=== PATIENT | male | born 1995 | race Caucasian/White ===

== ENCOUNTER 2017-10-01 00:22 | Emergency (ER) | payer BC ==
[~2017-10-01] VITALS: Ht 180.3 cm; Wt 86.4 kg
[~2017-10-01 00:22] MED LIST: ADDERALL20 MG PO; ADVIL200 MG PO; CEPHALEXIN500 M1 PO; NORCO 325 MG-51 TAB PO; NORCO 325 MG-7.1 TAB PO; PHENERGAN 25 TA25 MG PO; ZOFRAN 4MG T4 MG/TAB PO
[2017-10-01 00:32] VITALS: BP 165/88; TEMP 97.7
[2017-10-01] MEDS ORDERED: ZESTRIL 5MG5 MG PO (00:35)
[2017-10-01] MEDS ORDERED: VYVANSE50 MG PO (00:35)
[2017-10-01] MEDS ORDERED: ZOFRAN ODT4 MG PO (01:36)
[2017-10-01 01:50] VITALS: PULSE 76
== END 2017-10-01 01:50 | disposition home or self-care (01) ==
LOC: COL.ER 00:22
DX: G43.909 Migraine, unspecified, not intractable, without status migrainosus (principal); I10 Essential (primary) hypertension; Z86.73 Personal history of transient ischemic attack (TIA), and cerebral infarction without residual deficits; Z98.890 Other specified postprocedural states
CPT/HCPCS: J1885; J2765

== ENCOUNTER 2018-10-06 12:36 | Day surgery (SDC) | payer BC ==
[2018-10-06] VITALS (10 sets, daily range): BP systolic 131–144; BP diastolic 58–92; PULSE 72–85; TEMP 97.6–98.4
[~2018-10-06] VITALS: Ht 180.3 cm; Wt 88.1 kg
[~2018-10-06 12:36] MED LIST changes: +VYVANSE50 MG PO; +ZESTRIL 5MG5 MG PO; +ZOFRAN ODT4 MG PO
[2018-10-06] MEDS ORDERED: PRILOSEC10 MG PO (13:02)
[2018-10-06 13:26] LABS: COLLECTION METHOD CLEAN CATCH
[2018-10-06 13:45] LABS: PH 7 (5-8); SQUAMOUS EPITHELIAL None Seen /hpf; URINE APPEARANCE Clear; URINE BACTERIA None Seen /hpf; URINE BILIRUBIN Negative (NEGATIVE); URINE BLOOD Negative (NEGATIVE); URINE COLOR Yellow; URINE GLUCOSE Negative (NEGATIVE); URINE KETONE Negative (NEGATIVE); URINE LEUKOCYTE ESTERASE Negative (NEGATIVE); URINE NITRATE Negative (NEGATIVE); URINE PROTEIN(semi-quant) Negative (NEGATIVE); URINE RBC 0-2 /hpf; URINE UROBILINOGEN Negative (NEGATIVE)
[2018-10-06 13:50] LABS: BASO # 0.1 (0.0-0.2); BASO % 0.6 % (0.0-2.0); EOS % 0.3 % (0-4.0); GRAN # 10.8 (1.4-6.5); GRAN % 77.8 % (42.2-75.2); HEMATOCRIT 42.2 % (42.0-52.0); HEMOGLOBIN 14.5 g/dl (13.5-18.0); LYMPH # 1.7 (1.2-3.4); MEAN CELL VOLUME 84 fl (80.0-100.0); MEAN CORPUSCULAR HEMOGLOBIN 29 pg (27.0-31.0); MEAN CORPUSCULAR HGB CONC 34 g/dl (33.0-37.0); MEAN PLATELET VOLUME 9.4 fl (7.4-10.4); MONO # 1.2 (0.1-0.6); MONO % 8.8 % (1.7-9.3); PLATELET COUNT 289 K/mm3 (130-400); REDCELL DISTRIBUTION WIDTH-CV 12.9 % (11.5-14.5)
[2018-10-06 14:04] LABS: ALBUMIN 4.9 gm/dL (3.5-5.0); BILIRUBIN,TOTAL 0.8 mg/dL (0.0-1.0); C-REACTIVE PROTEIN 0.6 mg/dL (0.0-0.9); CALCIUM 9.9 mg/dL (8.4-10.2); CREATININE, serum 0.9 (0.66-1.25); POTASSIUM 4.1 mmol/L (3.4-5.0); TOTAL PROTEIN 8.3 gm/dL (6.4-8.2)
--- NOTE | 2018-10-06 15:35 | NUR ---
PATIENT ARRIVED TO ROOM 323 VIA WHEELCHAIR FROM ED. PATIENT SETTELED INTO ROOM. BOYFRIEND PRESENT AT THE BEDSIDE.
--- NOTE | 2018-10-06 16:30 | NUR ---
SEE ASSESSMENT B. CONSENT FORM SIGNED AND ON PATIENT'S CHART. PRE-OP IV FLUIDS INFUSING TO LEFT AC IV VIA GRAVITY FLOW TUBING. PATIENT TAKEN TO PERIOP VIA BED. WILL WAIT FOR PATIENT ARRIVAL BACK TO ROOM 323.
--- NOTE | 2018-10-06 18:10 | NUR ---
PATIENT ARRIVED BACK TO ROOM 323 VIA BED FROM PACU. PATIENT SETTELED INTO ROOM. ABDOMINAL LAP SITES X3 DRESSED WITH BANDAIDS AND ARE CD&I. POST-OP VSS. FAMILY AND FRIENDS AT THE BEDSIDE. PATIENT TOLERATING CLEAR LIQUIDS. CALL LIGHT WITHIN REACH. NO OTHER NEEDS AT THIS TIME.
--- NOTE | 2018-10-06 19:02 | NUR ---
REPORT GIVEN TO LUCY CORDERO.
--- NOTE | 2018-10-07 00:51 | NUR ---
Patient tolerating food and fluids well. At beginning of the shift patient had nausea and pain. PRN Zofran and morphine given. This was effective. After patient was able to keep down some food, PRN [place] was given. This noted to be effective. Patient sleeping well at this time. Family walked with patient in the halls and he did well with ambulation. Will continue to monitor.
--- NOTE | 2018-10-07 02:43 | NUR ---
Patient continues to rate pain 6/10 to left leg. States its burning, but its further up by his calf. PRN pain medication given. Will continue to monitor patient.
[2018-10-07 05:05] VITALS: BP 119/54; PULSE 63; PULSE 68; TEMP 98.1; TEMP 98.3
[2018-10-07 07:18] VITALS: BP 124/54; PULSE 58; TEMP 98.3
--- NOTE | 2018-10-07 08:00 | NUR ---
PATIENT IS DROWSY AND RESTING IN BED WITH HIS MOTHER AT THE BEDSIDE. PATIENT IS A&OX4. VSS. BOWEL SOUNDS ACTIVE ALL FOUR QUADRANTS. PATIENT TOLERATING DIET WITHOUT ANY COMPLAINTS OF N/V. ABDOMINAL LAP SITES X3 DRESSED WITH BANDAIDS AND ARE CD&I. POSITIVE PEDAL PULSES EQUAL BILATERALLY. SCD'S TO BLE. CALL LIGHT WITHIN REACH. NO OTHER NEEDS AT THIS TIME.
[2018-10-07 09:08] VITALS: BP 116/63
--- NOTE | 2018-10-07 09:20 | NUR ---
BETTYE met with the patient to discuss a discharge plan. The pt lives in [place] with roommates. The pt does not use any DME and reports independence with ADLs. The pt's PCP is Dr. Goss and pt receives medications from [facility] with no difficulties. The pt does not have advanced directives in the EMR and was not interested in obtainin a DPOA-HC form. The pt plans to return home upon discharge and his mom will provide transport. There are no additional needs at this time.
--- NOTE | 2018-10-07 11:18 | NUR ---
REPORT GIVEN TO LUCY AU.
[2018-10-07 11:28] VITALS: BP 120/58; PULSE 65
--- NOTE | 2018-10-07 11:52 | NUR ---
REPORT FROM MAIKOL AYALA.
[2018-10-07] MEDS ORDERED: PERCOCET 325 MG1 TA2 PO (12:59)
--- NOTE | 2018-10-07 14:14 | NUR ---
Initial visit; Patient thanked [employer] for looking in on him and offering God's blessings and keeping him in [employer]'s prayers.
--- NOTE | 2018-10-07 14:25 | NUR ---
discharge instructions reviewed with patient and family. Questions answered, pt left ambulatory with mother.
== END 2018-10-07 14:26 | disposition home or self-care (01) ==
LOC: COL.ER 12:36 → SURG 14:47 → SDCO 14:47 → COL.ER 14:47 → SURG 10-07 14:26 → SDCO 10-07 14:26
PROVIDERS: Physician Assistant
DX: K35.80 Unspecified acute appendicitis (principal); I10 Essential (primary) hypertension; Z79.899 Other long term (current) drug therapy; K21.9 Gastro-esophageal reflux disease without esophagitis; F32.9 Major depressive disorder, single episode, unspecified; F90.9 Attention-deficit hyperactivity disorder, unspecified type; G43.909 Migraine, unspecified, not intractable, without status migrainosus
CPT/HCPCS: G0378; J0690; J1100; J1170; J1885; J2250; J2270; J2405; J2704; J3010; J7030; Q9967

== ENCOUNTER 2018-12-01 16:48 | Emergency (ER) | payer OTHER ==
[~2018-12-01] VITALS: Ht 180.3 cm; Wt 88.6 kg
[~2018-12-01 16:48] MED LIST changes: +PERCOCET 325 MG1 TA2 PO; +PRILOSEC10 MG PO
[2018-12-01 17:02] VITALS: BP 146/82; TEMP 98.1
[2018-12-01 18:19] VITALS: PULSE 74
[2018-12-01 18:28] LABS: HIV 1/2 Antibodies Non-Reactive; HIV-1p24 Antigen Non-Reactive
[2018-12-02 16:06] LABS: HEPATITIS B SURFACE ANTIGEN Negative (Negative); HEPATITIS C VIRUS ANTIBODY Negative (Negative)
== END 2018-12-01 18:19 | disposition home or self-care (01) ==
LOC: COL.ER 16:48
PROVIDERS: Nurse Practitioner
DX: Z02.83 Encounter for blood-alcohol and blood-drug test (principal); J45.909 Unspecified asthma, uncomplicated; F90.9 Attention-deficit hyperactivity disorder, unspecified type

== ENCOUNTER 2019-04-23 18:34 | Emergency (ER) | payer SELFPAY ==
[~2019-04-23] VITALS: Ht 180.3 cm; Wt 86.4 kg
[2019-04-23 18:38] VITALS: BP 155/89; PULSE 84; TEMP 96.8
[2019-04-23] MEDS ORDERED: MOBIC 7.5MG7.5 MG PO (19:16)
== END 2019-04-23 19:25 | disposition home or self-care (01) ==
LOC: COL.ER 18:34
DX: S63.501A Unspecified sprain of right wrist, initial encounter (principal); I10 Essential (primary) hypertension; X50.0XXA Overexertion from strenuous movement or load, initial encounter; Y92.59 Other trade areas as the place of occurrence of the external cause

== ENCOUNTER → 2019-07-02 | Outpatient (CLI) | payer OTHER ==
[~2019-07-02] MED LIST changes: +MOBIC 7.5MG7.5 MG PO
== END ==
LOC: COL.RAD 14:13
DX: S63.501A Unspecified sprain of right wrist, initial encounter (principal)

== ENCOUNTER 2019-07-22 08:28 | Outpatient (RCR) | payer OTHER | END 2019-07-23 14:52 | disposition home or self-care (01) | LOC: WSOH 08:28 | DX: S63.501A Unspecified sprain of right wrist, initial encounter (principal); Z90.89 Acquired absence of other organs; Z98.890 Other specified postprocedural states; I10 Essential (primary) hypertension; K21.9 Gastro-esophageal reflux disease without esophagitis; F90.9 Attention-deficit hyperactivity disorder, unspecified type ==

== ENCOUNTER → 2019-09-05 | Outpatient (CLI) | payer BC | LOC: COL.LAB 08:00 → LDRO 15:52 → COL.LAB 16:43 | DX: Z20.828 Contact with and (suspected) exposure to other viral communicable diseases (principal) ==

== ENCOUNTER → 2020-02-10 | Outpatient (CLI) | payer BC | LOC: COL.RAD 07:37 | DX: K21.9 Gastro-esophageal reflux disease without esophagitis (principal) | CPT/HCPCS: A9541 ==

== ENCOUNTER 2020-04-07 10:22 | Day surgery (SDC) | payer BC ==
[~2020-04-07] VITALS: Ht 180.3 cm; Wt 90.9 kg
[2020-04-07] VITALS (7 sets, daily range): BP systolic 124–157; BP diastolic 54–87; PULSE 80–93; TEMP 97.3–98.7
[2020-04-07] MEDS ORDERED: PROTONIX20 MG PO (11:36)
[2020-04-07] MEDS ORDERED: ULTRAM 50MG TAB50 MG PO (13:01)
[2020-04-07] MEDS ORDERED: MOTRIN 600600 MG/TAB PO (13:01)
[2020-04-07] MEDS ORDERED: ZOFRAN ODT4 MG PO (16:16)
--- NOTE | 2020-04-07 16:35 | NUR ---
PT RETURNED FROM PACU INTO BAY #7. PT STATED FEELING ALITTLE ITCHY IN THE GROIN REGION. PT STATED FEELING ALITTLE NAUSEATED HOWEVER WANTED TO TRY TO START ON SOME PEPSI, WATER AND JELLO. LUNGS CLEAR, HRR, BOWEL SOUNDS PRESENT. 4X INSERTION SITES INTACT AND DRY. NO DRAINAGE NOTED. WILL CONT TO MONITOR.
--- NOTE | 2020-04-07 16:41 | NUR ---
PT DRINKING A FEW SIPS OF PEPST AND ATE JELLO. PT STATED FEELING VERY NAUSEOUS AND RATED HIS NAUSEA ON A SCALE OF 0-10 AT A 5. PT ATTEMPTED TO VOMIT, NO RESULT. NO EMESIS NOTED. IV PHENERGAN GIVEN PER ORDER, DR LAURA NOTIFIED OF ITCHING OF CHEST, GROIN AND THIGHS. DR LAURA ORDERED A X1 DOSE OF PO BENADRYL. VSS, AFEBRILE. DENIES PAIN AT THIS TIME. STATES SOME TIGHTNESS IN ABDOMEN. WILL CONT TO MONITOR PROGRESS.
--- NOTE | 2020-04-07 16:48 | NUR ---
PT STATES FEELING ALITTLE BETTER WHILE PHENERGAN INFUSING IV PER DR ORDERS. INSERTION SITES DRY AND INTACT. PT DENIES PAIN AT THIS TIME. DENIES EMESIS. 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 WILL CONT TO MONITOR PROGRESS.
--- NOTE | 2020-04-07 16:51 | NUR ---
PT STATES NOT HAVING ANY NAUSEA NOW. STATES FEELING SLEEPY. DENIES ITCHING AT THIS TIME. ENCOURAGED PT TO REST. VSS. DENIES PAIN. WILL CONT TO MONITOR PROGRESS.
--- NOTE | 2020-04-07 17:20 | NUR ---
PT UP TO VOID X1 ASSIST. PT VOIDED WITHOUT DIFFICULTY. PT STATED FEELING. BETTER. INSERTION SITESX4 DRY AND INTACT. PT TOLERATING FOOD AND FLUIDS WITHOUT DIFFICULTY. WILL CONT TO MONITOR.
== END 2020-04-07 17:37 | disposition home or self-care (01) ==
LOC: SDCO 10:22
DX: K81.1 Chronic cholecystitis (principal); I10 Essential (primary) hypertension; K21.9 Gastro-esophageal reflux disease without esophagitis; F41.9 Anxiety disorder, unspecified
CPT/HCPCS: J0360; J0690; J1100; J1170; J1885; J2250; J2405; J2550; J2704; J3010; J7120; Q9967

== ENCOUNTER 2020-04-07 20:24 | Emergency (ER) | payer BC ==
[~2020-04-07] VITALS: Ht 180.3 cm; Wt 90.9 kg
[~2020-04-07 20:24] MED LIST changes: +MOTRIN 600600 MG/TAB PO; +PROTONIX20 MG PO; +ULTRAM 50MG TAB50 MG PO
[2020-04-07 20:33] VITALS: TEMP 97.3
[2020-04-07 20:56] LABS: BASO % 0.4 % (0.0-2.0); GRAN # 9.9 (1.4-6.5); GRAN % 88.4 % (42.2-75.2); HEMATOCRIT 40.4 % (42.0-52.0); HEMOGLOBIN 13.8 g/dl (13.5-18.0); LYMPH % 9.1 % (20.0-51.0); MEAN CELL VOLUME 85 fl (80.0-100.0); MEAN CORPUSCULAR HEMOGLOBIN 29 pg (27.0-31.0); MEAN CORPUSCULAR HGB CONC 34 g/dl (33.0-37.0); MEAN PLATELET VOLUME 9.2 fl (7.4-10.4); MONO # 0.1 (0.1-0.6); MONO % 1.2 % (1.7-9.3); PLATELET COUNT 327 K/mm3 (130-400); RED BLOOD COUNT 4.78 M/mm3 (4.20-5.60); REDCELL DISTRIBUTION WIDTH-CV 12.1 % (11.5-14.5)
[2020-04-07 21:07] LABS: INR 1.1 (0.8-3.0); PROTHROMBIN TIME 12.2 SECONDS (9.7-12.8)
[2020-04-07 21:08] LABS: ALANINE AMINOTRANSFERASE 74 U/L (4-49); ALBUMIN 5.2 gm/dL (3.5-5.0); ALKALINE PHOSPHATASE 67 U/L (50-136); ANION GAP 13 mmol/L (7-16); AST,SGOT 52 U/L (15-37); BILIRUBIN,TOTAL 0.8 mg/dL (0.0-1.0); BLOOD UREA NITROGEN 17 mg/dL (9-20); CALCIUM 9.9 mg/dL (8.4-10.2); CARBON DIOXIDE 27 mmol/L (22-30); CHLORIDE 96 mmol/L (98-107); CREATININE, serum 1.13 (0.66-1.25); GLUCOSE 191 mg/dL (74-106); POTASSIUM 3.9 mmol/L (3.4-5.0); SODIUM 136 mmol/L (137-145); TOTAL PROTEIN 8.5 gm/dL (6.4-8.2)
[2020-04-07 21:09] LABS: PARTIAL THROMBOPLASTIN TIME 29.5 SECONDS (26.0-37.0)
[2020-04-07 21:20] LABS: COLLECTION METHOD CLEAN CATCH
[2020-04-07 21:27] LABS: PH 7 (5-8); SQUAMOUS EPITHELIAL None Seen /hpf; URINE APPEARANCE Clear; URINE BACTERIA None Seen /hpf; URINE BILIRUBIN Negative (NEGATIVE); URINE BLOOD Negative (NEGATIVE); URINE COLOR Straw; URINE GLUCOSE 2+ (NEGATIVE); URINE KETONE Negative (NEGATIVE); URINE LEUKOCYTE ESTERASE Negative (NEGATIVE); URINE NITRATE Negative (NEGATIVE); URINE PROTEIN(semi-quant) Negative (NEGATIVE); URINE RBC None Seen /hpf; URINE UROBILINOGEN Negative (NEGATIVE); URINE WBC 0-2 /hpf
[2020-04-07 21:55] LABS: TROPONIN-I < 0.012 ng/mL (0.000-0.035)
[2020-04-08 00:59] VITALS: BP 130/74; PULSE 88
== END 2020-04-08 01:10 | disposition home or self-care (01) ==
LOC: COL.ER 20:24
PROVIDERS: Emergency Medicine
DX: E86.0 Dehydration (principal); R42 Dizziness and giddiness; R11.0 Nausea; R53.83 Other fatigue; Z90.49 Acquired absence of other specified parts of digestive tract
CPT/HCPCS: J2765; J7030

== ENCOUNTER 2020-07-24 17:26 | Emergency (ER) | payer SELFPAY ==
[~2020-07-24] VITALS: Ht 182.9 cm; Wt 95.5 kg
[2020-07-24 18:20] LABS: BASO % 0.7 % (0.0-2.0); EOS # 0.1 (0.0-0.7); EOS % 1.3 % (0-4.0); GRAN # 2.6 (1.4-6.5); GRAN % 46.9 % (42.2-75.2); HEMATOCRIT 38.6 % (42.0-52.0); HEMOGLOBIN 13.6 g/dl (13.5-18.0); LYMPH # 2.2 (1.2-3.4); LYMPH % 40.4 % (20.0-51.0); MEAN CELL VOLUME 83 fl (80.0-100.0); MEAN CORPUSCULAR HEMOGLOBIN 29 pg (27.0-31.0); MEAN CORPUSCULAR HGB CONC 35 g/dl (33.0-37.0); MONO # 0.6 (0.1-0.6); MONO % 10.3 % (1.7-9.3); PLATELET COUNT 301 K/mm3 (130-400); RED BLOOD COUNT 4.68 M/mm3 (4.20-5.60); REDCELL DISTRIBUTION WIDTH-CV 11.9 % (11.5-14.5)
[2020-07-24] MEDS ORDERED: TOPROL XL 50MG50 MG PO (18:20)
[2020-07-24 18:33] LABS: ALANINE AMINOTRANSFERASE 44 U/L (4-49); ALBUMIN 4.9 gm/dL (3.5-5.0); ALKALINE PHOSPHATASE 65 U/L (50-136); ANION GAP 11 mmol/L (7-16); AST,SGOT 32 U/L (15-37); BILIRUBIN,TOTAL 0.4 mg/dL (0.0-1.0); BLOOD UREA NITROGEN 17 mg/dL (9-20); CALCIUM 9.5 mg/dL (8.4-10.2); CARBON DIOXIDE 26 mmol/L (22-30); CHLORIDE 103 mmol/L (98-107); CREATININE, serum 1.09 (0.66-1.25); GLUCOSE 98 mg/dL (74-106); SODIUM 140 mmol/L (137-145); TOTAL PROTEIN 8.3 gm/dL (6.4-8.2)
[2020-07-24 18:44] LABS: C-REACTIVE PROTEIN < 0.5 mg/dL (0.0-0.9)
[2020-07-24 19:32] VITALS: BP 134/82; PULSE 60; TEMP 98.3
== END 2020-07-24 19:36 | disposition home or self-care (01) ==
LOC: COL.ER 17:26
PROVIDERS: Nurse Practitioner
DX: I10 Essential (primary) hypertension (principal); R51.9 Headache, unspecified; R56.9 Unspecified convulsions; Z79.899 Other long term (current) drug therapy
CPT/HCPCS: J1200; J1885; J2060; J2765; J7030